=== PATIENT | female | born 1985 | race Caucasian/White ===

== ENCOUNTER 2018-02-21 15:37 | Emergency (ER) | payer BC ==
[2018-02-21] MEDS ORDERED: METOCLOPRAMIDE 5 MG/ML 2 ML VIAL IVP STA (15:50)
[2018-02-21] MEDS ORDERED: SODIUM CHLORIDE 0.9% 1,000 ML IV STA (15:50)
[2018-02-21] MEDS ORDERED: KETOROLAC 30 MG/ML 1 ML VIAL IVP STA (15:50)
[2018-02-21] MEDS ORDERED: diphenhydrAMINE 50 MG/ML 1 ML VIAL IVP STA (15:50)
--- NOTE | 2018-02-21 15:52 | ED ---
General Adult HPI - General Chief complaint: Headache Stated complaint: Migraine Time Seen by Provider: 02/21/18 15:45 Source: patient, RN notes reviewed, old records reviewed Mode of arrival: ambulatory Limitations: no limitations - History of Present Illness Initial comments: Patient's a 32-year-old female significant past medical history for migraines, presents to the emergency room today with a chief complaint of a migraine headache. She states it's located in the right side of the head. Does admit to symptoms of nausea vomiting. Does admit to some photosensitivity along with sensitivities to sound and area patient states that she was recently diagnosed with pneumonia yesterday started antibiotics. She did go to work and this is where her migraine headache began. Patient denies any other complaints. She does admit that these symptoms are consistent with migraine headaches that she' s had in the past. Patient denies any recent shortness of breath, chest pain, back pain, abdominal pain, numbness or tingling, visual changes, or any other complaints. - Related Data Home Medications Medication Instructions Recorded Confirmed ALPRAZolam [Xanax] 0.5 mg PO BID PRN 02/21/18 02/21/18 Acetaminophen [Tylenol] 325 - 650 mg PO Q4H PRN 02/21/18 02/21/18 Ibuprofen [Motrin Ib] 200 - 400 mg PO Q6H PRN 02/21/18 02/21/18 Allergies Allergy/AdvReac Type Severity Reaction Status Date / Time Penicillins AdvReac Nausea & Verified 02/21/18 15:56 Vomiting Review of Systems ROS Statement: Those systems with pertinent positive or pertinent negative responses have been documented in the HPI. ROS Other: All systems not noted in ROS Statement are negative. Past Medical History Past Medical History: No Reported History Additional Past Medical History / Comment(s): migraines History of Any Multi-Drug Resistant Organisms: None Reported Past Surgical History: Section Past Psychological History: Anxiety Smoking Status: Never smoker Past Alcohol Use History: None Reported Past Drug Use History: None Reported General Exam - General Exam Comments Initial Comments: General: The patient is awake and alert, in no distress, and does not appear acutely ill. Eye: Pupils are equal, round and reactive to light, extra-ocular movements are intact. No nystagmus. There is normal conjunctiva bilaterally. No signs of icterus. Ears, nose, mouth and throat: There are moist mucous membranes and no oral lesions. Neck: The neck is supple, there is no tenderness or JVD. Cardiovascular: There is a regular rate and rhythm. No murmur, rub or gallop is appreciated. Respiratory: Lungs are clear to auscultation, respirations are non-labored, breath sounds are equal. No wheezes, stridor, rales, or rhonchi. Musculoskeletal: Normal ROM, no tenderness. Neurological: A&O x 3. CN II-XII intact, There are no obvious motor or sensory deficits. Coordination appears grossly intact. Speech is normal. Skin: Skin is warm and dry and no rashes or lesions are noted. Psychiatric: Cooperative, appropriate mood & affect, normal judgment. Limitations: no limitations Course Vital Signs 02/21/18 15:39 Temperature 98.4 F Pulse Rate 83 Respiratory 16 Rate Blood Pressure 120/87 O2 Sat by Pulse 100 Oximetry Medical Decision Making - Medical Decision Making Patient reexamined at this time shows no signs of distress. Resting comfortably. Patient's does admit that symptoms are consistent with migraines is had in the past. Was given Toradol, Benadryl, Reglan, IV fluids and is feeling better at this time will be discharged home to follow-up with the family doctor over the next 2 days. Advised to use anti-inflammatories for any rebound headaches. Disposition Clinical Impression: Migraine Disposition: HOME SELF-CARE Condition: Good Instructions: Migraine Headache (ED) Additional Instructions: Please use medication as discussed. Please follow-up with family doctor in the next 2 days of symptoms have not improved. Please return to emergency room if the symptoms increase or worsen or for any other concerns. Is patient prescribed a controlled substance at d/c from ED?: No Referrals: Avery Greco III, MD [Primary Care Provider] - 1-2 days Time of Disposition: 17:25
[2018-02-21 17:46] VITALS: BP 107/78; PULSE 81; RESP 18; TEMP 97.8
== END 2018-02-21 17:47 | disposition home or self-care (01) ==
LOC: EC 15:37
DX: G43.909 Migraine, unspecified, not intractable, without status migrainosus (principal); J18.9 Pneumonia, unspecified organism; Z88.0 Allergy status to penicillin
CPT/HCPCS: 99284; 96374; 96375 ×2; 96361; J1200; J2765; J1885

== ENCOUNTER → 2019-03-11 | Outpatient (CLI) | payer BC ==
--- NOTE | 2019-03-11 13:25 | US ---
EXAMINATION TYPE: US thyroid st tissue head/neck DATE OF EXAM: 03/11/2019 COMPARISON: NONE CLINICAL HISTORY: E04.9 Nontoxic goiter, unspecified. GLAND SIZE: Right Lobe: 3.1 x 1.5 x 1.2 cm Overall Parenchyma: homogenous Left Lobe: 4.1 x 1.5 x 1.2 cm Overall Parenchyma: homogeneous Isthmus Thickness: 0.3 cm NODULES RIGHT: # of nodules measured on right: 0 LEFT: # of nodules measured on left: 0 ISTHMUS: # of nodules measured in the isthmus: 0 Bilateral neck scanned, no evidence of lymphadenopathy. IMPRESSION: Homogeneous nonenlarged thyroid gland. No discrete nodule.
== END | disposition home or self-care (01) ==
LOC: RADUSWWP 12:54
PROVIDERS: ATTEND Family Medicine
DX: E04.9 Nontoxic goiter, unspecified (principal)
CPT/HCPCS: 76536

== ENCOUNTER → 2023-06-09 | Outpatient (CLI) | payer BC ==
--- NOTE | 2023-06-16 13:59 | HM ---
HOLTER MONITOR REPORT STUDY PERFORMED: 24-hour monitor. FINDINGS: The patient was monitored for 24 hours. The baseline rhythm appeared to be sinus mechanism with average heart rate of 93 beats per minute, minimum heart rate of 66 beats per minute, and max heart rate of 155 beats per minute. Rare ventricular and supraventricular ectopic events noted. No significant sinus pause or sinus arrest. CONCLUSION: 1. This is a 24-hour Holter monitor. 2. Rare PACs and PVCs. 3. No significant sinus pause or sinus arrest. MMODL / IJN: [id number] /
== END | disposition home or self-care (01) ==
LOC: RADECHMAIN 07:26
PROVIDERS: ATTEND Internal Medicine
DX: I49.3 Ventricular premature depolarization (principal); I49.1 Atrial premature depolarization
CPT/HCPCS: 93225; 93226

== ENCOUNTER 2023-09-29 16:13 | Emergency (ER) | payer BC ==
[2023-09-29] MEDS ORDERED: KETOROLAC 15 MG/ML 1 ML VIAL ONE (17:12)
[2023-09-29] MEDS ORDERED: ONDANSETRON 4 MG/2 ML VIAL ONE (17:12)
[2023-09-29] MEDS ORDERED: diphenhydrAMINE 50 MG/ML 1 ML VIAL ONE (17:12)
[2023-09-29] MEDS ORDERED: DEXAMETHASONE SOD PHOSPHATE 10 MG/ML 1 ML VIAL ONE (17:13)
[2023-09-29] MEDS ORDERED: SODIUM CHLORIDE 0.9% 1,000 ML BAG ONE (17:15)
[2023-09-29] MEDS ORDERED: METOCLOPRAMIDE 5 MG/ML 2 ML VIAL ONE (18:00)
[2023-09-29] MEDS ORDERED: HYDROmorphone 0.5 MG/0.5 ML SYRINGE ONE (18:00)
[2023-09-29] MEDS ORDERED: ONDANSETRON 4 MG ODT STARTER PACK 2 TAB BTL ONE (18:58)
== END 2023-09-29 19:15 | disposition home or self-care (01) ==
LOC: EC 16:13
DX: G43.909 Migraine, unspecified, not intractable, without status migrainosus (principal)
CPT/HCPCS: 96361; 96374; 96375; 99283